=== PATIENT | male | born 1995 | race Caucasian/White ===

== ENCOUNTER 2019-10-04 01:15 | Emergency (ER) | payer SELFPAY ==
[~2019-10-04] VITALS: Ht 180.3 cm; Wt 100.0 kg
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
[2019-10-04] MEDS ORDERED: IBUPROFEN 800 MG (MOTRIN) TAB PO ONE (04:00)
[2019-10-04 04:56] VITALS: BP 116/72
--- NOTE | 2019-10-04 05:32 | Diagnostic Imaging Report ---
INDICATION: Elbow pain COMPARISON: None. FINDINGS: 3 views of the left elbow show no fractures, dislocations, or other acute bony abnormalities identified. Joint spaces are well maintained throughout. The soft tissues appear unremarkable. No radiopaque foreign bodies are identified. IMPRESSION: No acute fractures or dislocations of the left elbow. Dictated by: Dictated on workstation # [id number]
== END 2019-10-04 04:57 | disposition home or self-care (01) ==
LOC: ER 01:17
DX: S50.02XA Contusion of left elbow, initial encounter (principal); F17.210 Nicotine dependence, cigarettes, uncomplicated; W18.39XA Other fall on same level, initial encounter
CPT/HCPCS: 73080

== ENCOUNTER 2022-03-14 10:39 | Emergency (ER) | payer BC ==
[~2022-03-14] VITALS: Ht 187.9 cm; Wt 100.0 kg
[2022-03-14 10:40] VITALS: BP 164/101
[2022-03-14] MEDS ORDERED: TETANUS,DIPTH,PERTUSS P/F (BOOSTRIX) 0.5 ML VIAL IM ONE (11:15)
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
[2022-03-14] MEDS ORDERED: METR-145 PO (11:25)
[2022-03-14] MEDS ORDERED: LEVO750T39 PO (11:25)
== END 2022-03-14 11:30 | disposition home or self-care (01) ==
LOC: EDUNIT# 10:39 → ER 10:40
DX: S61.411A Laceration without foreign body of right hand, initial encounter (principal); F17.210 Nicotine dependence, cigarettes, uncomplicated; Z23 Encounter for immunization; Z28.311 Partially vaccinated for COVID-19; W18.30XA Fall on same level, unspecified, initial encounter; Y93.11 Activity, swimming; Y92.828 Other wilderness area as the place of occurrence of the external cause
CPT/HCPCS: 90715